=== PATIENT | female | born 1970 | race Hispanic/Latino ===

== ENCOUNTER 2017-08-18 17:08 | Emergency (ER) | payer OTHER ==
[2017-08-18 17:08] VITALS: BMI 29.9
[2017-08-18 17:23] VITALS: BP 129/78; PULSE 71; RESP 18; TEMP 97; O2SAT 98
--- NOTE | 2017-08-18 18:18 | ED PDOC ---
HPI: Abdomen Time Seen by Provider: 08/18/17 17:46 Chief Complaint (Nursing): Abdominal Pain History Per: Patient Additional Complaint(s): 47 yo female, PMH of graves Dz, presents to ED c/o right abdominal pain radiating to the back x3 week. Pt states she has not moved bowels x3 weeks now. Pt tried, mag citrate, Doculax, and fleet without success. No fever or chills, or nausea or vomiting Past Medical History Reviewed: Historical Data, Nursing Documentation, Vital Signs Vital Signs: Last Vital Signs Temp 97 F L 08/18/17 17:19 Pulse 71 08/18/17 17:19 Resp 18 08/18/17 17:19 BP 129/78 08/18/17 17:19 Pulse Ox 98 08/18/17 18:18 - Medical History PMH: Graves' Disease, Hyperthyroidism - Family History Family History: States: No Known Family Hx - Living Arrangements Living Arrangements: With Family - Social History Current smoker - smoking cessation education provided: No Alcohol: None Drugs: Denies - Home Medications Home Medications: Ambulatory Orders Medication Instructions Recorded Levothyroxine [Synthroid] 75 mcg PO DAILY 11/28/16 - Allergies Allergies/Adverse Reactions: Allergies Allergy/AdvReac Type Severity Reaction Status Date / Time No Known Allergies Allergy Verified 10/15/14 12:51 Review of Systems ROS Statement: Except As Marked, All Systems Reviewed And Found Negative Gastrointestinal: Positive for: Abdominal Pain, Constipation Physical Exam - Reviewed Nursing Documentation Reviewed: Yes Vital Signs Reviewed: Yes - Physical Exam Appears: Positive for: Well, Non-toxic, No Acute Distress Head Exam: Positive for: ATRAUMATIC, NORMAL INSPECTION, NORMOCEPHALIC Skin: Positive for: Normal Color, Warm, DRY Eye Exam: Positive for: EOMI, Normal appearance, PERRL ENT: Positive for: Normal ENT Inspection Neck: Positive for: Normal, Painless ROM Cardiovascular/Chest: Positive for: Regular Rate, Rhythm Respiratory: Positive for: CNT, Normal Breath Sounds Gastrointestinal/Abdominal: Positive for: Bowel Sounds, Soft, Tenderness (mild suprapubic), Distended. Negative for: Guarding, Rebound, Hernia, Asicites Back: Positive for: Normal Inspection Extremity: Positive for: Normal ROM Neurologic/Psych: Positive for: Alert, Oriented - Laboratory Results Result Diagrams: 08/18/17 18:28 08/18/17 18:28 - ECG O2 Sat by Pulse Oximetry: 98 Medical Decision Making Medical Decision Making: IV access established and diagnostics ordered CBC and COMP resulted WNL UA (+) UTI, 26 WBC Abdomen XR: (+) non obstructive gas patten, minimal stool noted on exam Due to Pt's physical presentation and history, CT scan ordered Pt given Po contrast, CT ordered Case endorsed to CYNDIE Seay at 1999 pending diagnostic review and re-eval Disposition - Clinical Impression Clinical Impression: Abdominal discomfort - Patient ED Disposition Is Patient to be Admitted: Transfer of Care - Disposition Disposition: Transfer of Care Disposition Time: 19:43 Condition: STABLE Forms: [facility] (Italian) - POA Present On Arrival: None
[2017-08-18 18:31] LABS: BASO # 0.1 K/uL (0.0-0.2); BASO % 0.7 % (0.0-2.0); EOS # 0.1 K/uL (0.0-0.7); EOS % 1.8 % (0.0-4.0); HEMOGLOBIN 12.3 g/dL (12.0-16.0); LYMPH # 1.7 K/uL (1.0-4.3); LYMPH % 23.9 % (20.0-40.0); MEAN CORPUSCULAR HEMOGLOBIN 27.9 pg (27.0-31.0); MEAN CORPUSCULAR HGB CONC 32.8 g/dL (33.0-37.0); MEAN PLATELET VOLUME 8.6 fl (7.2-11.7); MONO # 0.6 K/uL (0.0-0.8); MONO % 7.8 % (0.0-10.0); NEUT # 4.6 K/uL (1.8-7.0); NEUT % 65.8 % (50.0-75.0); NRBC % 0.1 % (0.0-0.0); RBC 4.42 Mil/uL (3.80-5.20); RED CELL DISTRIBUTION WIDTH 13.4 % (11.5-14.5); WHITE BLOOD COUNT 7.1 K/uL (4.8-10.8)
[2017-08-18 18:48] LABS: ALB/GLOB RATIO 1.3 (1.0-2.1); ALBUMIN 4.5 g/dL (3.5-5.0); ALT/SGPT 35 U/L (9-52); AMYLASE 83 U/L (30-110); AST/SGOT 26 U/L (14-36); BLOOD UREA NITROGEN 16 mg/dl (7-17); CALCIUM 10.2 mg/dL (8.4-10.2); GFR AFRICAN-AMERICAN > 60; GFR NON-AFRICAN AMERICAN > 60; LIPASE 102 U/L (23-300)
[2017-08-18] MEDS ORDERED: Iohexol 240 (50 ml) PO ONE (19:01)
[2017-08-18 19:23] LABS: SQUAMOUS EPITHIAL 2 /hpf (0-5); URINE BACTERIA MOD (<OCC); URINE BILIRUBIN NEGATIVE (NEGATIVE); URINE BLOOD MODERATE (NEGATIVE); URINE CLARITY CLOUDY (Clear); URINE COLOR YELLOW (YELLOW); URINE GLUCOSE (UA) NEG (Normal); URINE LEUKOCYTE ESTERASE SMALL Leu/uL (Negative); URINE NITRATE NEGATIVE (NEGATIVE); URINE PROTEIN NEGATIVE (NEGATIVE); URINE UROBILINOGEN 0.2-1.0 mg/dL (0.2-1.0)
[2017-08-18] MEDS ORDERED: Iohexol 240 (50 ml) ONE (19:56)
[2017-08-18] MEDS ORDERED: Sodium Chloride 0.9% 50 ML IV ONE (20:32)
[2017-08-18] MEDS ORDERED: Iohexol 300 100 ML IJ ONE (20:32)
--- NOTE | 2017-08-18 20:46 | ED PDOC ---
- Laboratory Results Result Diagrams: 08/18/17 18:28 08/18/17 18:28 - ECG O2 Sat by Pulse Oximetry: 98 Pulse Ox Interpretation: Normal - Other Rad CT abd and pelvis with oral and IV contrast X-Ray: Read By Radiologist X-Ray Interpretation: see below Medical Decision Making Medical Decision Making: Case was signed out to keno writer from ARETHA Harris pending CT abd and pelvis. Patient tolerated oral contrast. CT scheduled at 10:[address]: FINDINGS: Lower thorax: Calcified granuloma in the medial right middle lobe. ABDOMEN: Liver: Unremarkable. No mass. Gallbladder and bile ducts: Unremarkable. No calcified stones. No ductal dilation. Pancreas: Unremarkable. No mass. No ductal dilation. Spleen: Unremarkable. No splenomegaly. Adrenals: Unremarkable. No mass. Kidneys and ureters: Parenchymal loss in the upper right kidney with slight generalized atrophy. No hydronephrosis. Stomach and bowel: Unremarkable. No obstruction. No mucosal thickening. Appendix: A normal appendix is seen. If there is a discrepancy between the preliminary and final interpretation. PELVIS: Bladder: Unremarkable. No mass. Reproductive: Unremarkable as visualized. ABDOMEN and PELVIS: Intraperitoneal space: Unremarkable. No free air. No significant fluid collection. Bones/joints: Prominent cystic changes in the femoral head/neck junctions, left greater than right. No acute fracture. No dislocation. Soft tissues: Residua of low transverse pelvic incision. Vasculature: There is mild calcification of the abdominal aorta with extension into the iliac arteries. No abdominal aortic aneurysm. Lymph nodes: Unremarkable. No enlarged lymph nodes. IMPRESSION: 1. Little change since 11/28/2016. No acute interval process is identified and no obstruction. 2. Cystic changes of the femoral heads and neck, left greater than right which are similar. Patient is aware of all diagnostic testing results, all questions answered. Patient given dietary instructions for relief of constipation and was referred to deaf teacher document control coordinator. Disposition - Clinical Impression Clinical Impression: Abdominal discomfort, Constipation - POA Present On Arrival: None - Disposition Referrals: Karlos Garvin MD [Staff Provider] - Disposition: Routine/Home Disposition Time: 23:40 Condition: STABLE Additional Instructions: MiraLAX daily to relieve constipation, available [id number]. Increase fiber in diet. Follow up soon as possible with deaf teacher. Instructions: Constipation (ED), High Fiber Diet (ED) Forms: [employer] (Portuguese)
--- NOTE | 2017-08-19 10:30 | RAD ---
HISTORY: constipation COMPARISON: No prior. FINDINGS: BOWEL: Normal. No obstruction. No free air. Moderate amount of stool seen within the cecum and at ascending as well as proximal transverse colon consistent with constipation. BONES: Normal. OTHER FINDINGS: Calcified pelvic phleboliths seen overlying the left inferior true pelvis IMPRESSION: Findings consistent with this patient's history of constipation as above
--- NOTE | 2017-08-19 14:51 | CT ---
PROCEDURE: CT scan abdomen pelvis dated 08/18/2017. HISTORY: Abdominal pain and constipation x3 weeks. Rule out obstruction. COMPARISON: Comparison made with prior CT scan of the abdomen pelvis 12/08/2016 TECHNIQUE: Contiguous axial images of the abdomen and pelvis performed following oral and intravenous injection of approximately 95 cc Omnipaque 300 contrast material. Additional 2 dimensional sagittal and coronal reformats generated. Radiation dose: Total exam DLP = 986.27 mGy-cm. This CT exam was performed using one or more of the following dose reduction techniques: Automated exposure control, adjustment of the mA and/or kV according to patient size, and/or use of iterative reconstruction technique. FINDINGS: LOWER THORAX: Re- demonstrated is are 2 tiny calcifications 1 in the middle lobe and 1 in the right anterior lower lobe unchanged. There may be some minimal postinflammatory scarring/ atelectasis in the left lingular region. . There may be some minimal chronic postinflammatory. No effusion or basilar pneumothorax. Very tiny hiatal hernia. LIVER: The liver exhibits normal size measuring approximately 14.6 cm in CC dimension. Mild diffuse fatty hepatic infiltration. Portal and splenic veins are opacified. GALLBLADDER AND BILE DUCTS: Gallbladder is physiologically distended. No evidence of intraluminal gallbladder calculi. PANCREAS: Re- demonstrated are 2 tiny foci low-attenuation posterior margin proximal pancreatic body (axial image number [id number]) and additional tiny focus within the posterior margin of the pancreas is at the level of the mid to distal body (axial image number 48) that are of uncertain etiology too small to characterize. Foci could represent invaginated fat or small cysts however IPMNs of the pancreas not excluded. Followup interval recommended. SPLEEN: Spleen exhibits normal size and attenuation pattern without masses collections or calcifications. ADRENALS: No adrenal lesions. KIDNEYS AND URETERS: Kidneys demonstrate symmetric nephrograms. No evidence of nephrolithiasis or hydronephrosis. BLADDER: The urinary bladder is appears incompletely distended which may account for slight thick-walled appearance. . No evidence of intraluminal urinary bladder calculi. REPRODUCTIVE: Probable tiny left adnexal cyst. APPENDIX: Normal-appearing appendix BOWEL: Evaluation of the bowel is limited due to incomplete opacification. Stomach is non opacified and underdistended the latter of which presumably accounts for thick-walled appearance. Gastritis not excluded. Visualized loops of small bowel exhibit normal contour and caliber. No evidence of acute mechanical small bowel obstruction. Oral contrast material has extended into the colon to the level of the proximal/mid sigmoid region. . PERITONEUM: Unremarkable. No fluid collection. No free air. LYMPH NODES: Unremarkable. No enlarged lymph nodes. VASCULATURE: Unremarkable. No aortic aneurysm. BONES: Minor multilevel degenerative spondylosis of the lower thoracic and lumbar spine. Re- demonstrated are cystic changes both femoral heads OTHER FINDINGS: None. IMPRESSION: Re- demonstrated are small calcified granulomata right lower lung field consistent with prior exposure to granulomatous disease process as described. Mild fatty hepatic infiltration. The the These findings were discussed with the emergency room ARETHA Estes at approximately 2:45 p.m. with written down and read back verification.
== END 2017-08-19 00:06 | disposition home or self-care (01) ==
LOC: H.ER 17:08
DX: K59.00 Constipation, unspecified (principal); N39.0 Urinary tract infection, site not specified; E05.00 Thyrotoxicosis with diffuse goiter without thyrotoxic crisis or storm
CPT/HCPCS: 74018; 74177; 80053; 81003; 81025; 82150; 83690; 84484; 85025; 99283; Q9966; Q9967

== ENCOUNTER 2017-11-02 13:32 | Emergency (ER) | payer OTHER ==
[2017-11-02 13:37] VITALS: BMI 29.8
[2017-11-02 13:38] VITALS: TEMP 97.8; O2SAT 100
[2017-11-02] MEDS ORDERED: Lidocaine 5% Patch TD STA (14:23)
[2017-11-02] MEDS ORDERED: Lidocaine 5% Patch TD ONE (14:55)
--- NOTE | 2017-11-02 15:45 | ED PDOC ---
HPI: Back Time Seen by Provider: 11/02/17 13:51 Chief Complaint (Nursing): Back Pain Chief Complaint (Provider): Back Pain History Per: Patient History/Exam Limitations: no limitations Onset/Duration Of Symptoms: Days (x5), Worse Since (onset) Current Symptoms Are (Timing): Still Present Quality Of Discomfort: "Pain" Associated Symptoms: New Numbness Exacerbating Factor(s): Movement Additional Complaint(s): Juanita Woodall is a 47 year old female, with a past medical history of Grave's disease, who presents to the emergency department complaining of a progressively worst lower back pain onset for x5 days. Patient reports pain initially began when she was taking a shower, she bend forward to clean left leg and when she stood up she felt pain in the lower back. The following day when she woke up the pain became worst. She went to Dr. Taylor's office and prescribed Tramadol, Ibuprofen and Robaxin. Patient states symptoms have not been alleviated with pain medications and now feels a numbness sensation going down both buttocks. Pain is still worst with movement. She denies any blunt trauma, dysuria, hematuria, incontinence, abdominal pain, nausea, vomit, and diarrhea. No further medical complaints. PMD: Steve Taylor Past Medical History Reviewed: Historical Data, Nursing Documentation, Vital Signs Vital Signs: Last Vital Signs Temp 97.8 F 11/02/17 13:37 Pulse 54 L 11/02/17 13:37 Resp 16 11/02/17 13:37 BP 135/83 11/02/17 13:37 Pulse Ox 100 11/02/17 13:37 - Medical History PMH: Graves' Disease, Hyperthyroidism - Surgical History Surgical History: No Surg Hx - Family History Family History: States: No Known Family Hx - Home Medications Home Medications: Ambulatory Orders Medication Instructions Recorded Levothyroxine [Synthroid] 75 mcg PO DAILY 11/28/16 Nitrofurantoin Macrocrystals 100 mg PO BID #14 cap 08/19/17 [Macrobid] Cyclobenzaprine [Cyclobenzaprine 10 mg PO Q8 PRN #20 tab 11/02/17 HCl] Meloxicam [Mobic] 7.5 mg PO DAILY PRN #20 tab 11/02/17 - Allergies Allergies/Adverse Reactions: Allergies Allergy/AdvReac Type Severity Reaction Status Date / Time No Known Allergies Allergy Verified 10/15/14 12:51 Review of Systems ROS Statement: Except As Marked, All Systems Reviewed And Found Negative Gastrointestinal: Negative for: Nausea, Vomiting, Abdominal Pain, Diarrhea Genitourinary Female: Negative for: Dysuria, Incontinence, Hematuria Musculoskeletal: Positive for: Back Pain (lower that radiates to both buttocks) Neurological: Positive for: Numbness Physical Exam - Reviewed Nursing Documentation Reviewed: Yes Vital Signs Reviewed: Yes - Physical Exam Appears: Positive for: In Acute Distress (mild painful) Head Exam: Positive for: ATRAUMATIC, NORMAL INSPECTION, NORMOCEPHALIC Skin: Positive for: Normal Color, Warm, Dry Neck: Positive for: Painless ROM Cardiovascular/Chest: Positive for: Regular Rate, Rhythm. Negative for: Murmur Respiratory: Positive for: Normal Breath Sounds. Negative for: Respiratory Distress Pulses-Dorsalis Pedis (L): 2+ Pulses-Dorsalis Pedis (R): 2+ (5/5 strength b/l in lower extremities) Gastrointestinal/Abdominal: Positive for: Normal Exam, Soft. Negative for: Tenderness Back: Positive for: Normal Inspection, Vertebral Tenderness (minimal lumbar vertebral tenderness), Other (b/l paralumbar tenderness. Straight leg raise test in right positive at 30. ). Negative for: L CVA Tenderness, R CVA Tenderness Extremity: Positive for: Normal ROM (lower extremities), Other. Negative for: Deformity, Swelling Neurologic/Psych: Positive for: Alert, Oriented. Negative for: Motor/Sensory Deficits - ECG O2 Sat by Pulse Oximetry: 100 (RA) Pulse Ox Interpretation: Normal - Progress ED Course And Treament: CT LS spine w/o contrast: Disc bulge L3-4 through L5-S1. No focal disc herniation. Mild spinal stenosis at L4-5. No foraminal stenosis. On re-evaluation, pt. reports some pain relief. Gait steady unassisted. Offered more pain meds but refused. States she will f/u with PMD. Medical Decision Making Medical Decision Making: Initial Impression: Back pain Initial Plan: --Lumbar Spine w/o contrast [CT] --Lidoderm 1 ea TD --Toradol 30 mg IM --Valium 10 mg PO --Urinalysis --Reevaluation 16:[address] FINDINGS: VERTEBRAE: Unremarkable. No fracture. Normal alignmentVertebral bodies maintained in height. Transverse processes and posterior elements are intact. Normal alignment is maintained. . DISCS/SPINAL CANAL/NEURAL FORAMINA: L1-2: Unremarkable. L2-3: Unremarkable. L3-4: Mild disc bulge. No herniation. No spinal or foraminal stenosis. L4-5: Mild disc bulge, asymmetric towards the left. No focal herniation. Mild central spinal stenosis. No foraminal stenosis. L5-S1: Mild diffuse disc bulge. No focal herniation. No spinal or foraminal stenosis. PARASPINAL SOFT TISSUES: Unremarkable. OTHER FINDINGS: None. IMPRESSION: Disc bulge L3-4 through L5-S1. No focal disc herniation. Mild spinal stenosis at L4-5. No foraminal stenosis. Otherwise unremarkable examination. ~ Scribe Attestation: Documented by Levy Callaway, acting as a scribe for Patrice Estes PA-C. Provider Scribe Attestation: All medical record entries made by the Scribe were at my direction and personally dictated by me. I have reviewed the chart and agree that the record accurately reflects my personal performance of the history, physical exam, medical decision making, and the department course for this patient. I have also personally directed, reviewed, and agree with the discharge instructions and disposition. Disposition - Clinical Impression Clinical Impression: Bulging lumbar disc - Patient ED Disposition Is Patient to be Admitted: No - Disposition Referrals: [facility] [Outside] Disposition: Routine/Home Disposition Time: 18:11 Condition: STABLE Additional Instructions: Follow up with PMD for further evaluation. Return to ED immediately if symptoms worsen. Prescriptions: Cyclobenzaprine [Cyclobenzaprine HCl] 10 mg PO Q8 PRN #20 tab PRN Reason: Muscle Spasm Meloxicam [Mobic] 7.5 mg PO DAILY PRN #20 tab PRN Reason: Pain, Mild (1-3) Instructions: Back Exercises Forms: [employer] (Lithuanian) Print Language: SETSWANA
--- NOTE | 2017-11-02 16:23 | CT ---
PROCEDURE: CT Lumbar Spine without contrast HISTORY: pain COMPARISON: None. TECHNIQUE: Axial computed tomography images were obtained of the lumbar spine without the use of intravenous contrast. Coronal and sagittal reformatted images were created and reviewed. Radiation dose: Total exam DLP = 890.23 mGy-cm. This CT exam was performed using one or more of the following dose reduction techniques: Automated exposure control, adjustment of the mA and/or kV according to patient size, and/or use of iterative reconstruction technique. FINDINGS: VERTEBRAE: Unremarkable. No fracture. Normal alignmentVertebral bodies maintained in height. Transverse processes and posterior elements are intact. Normal alignment is maintained. . DISCS/SPINAL CANAL/NEURAL FORAMINA: L1-2: Unremarkable. L2-3: Unremarkable. L3-4: Mild disc bulge. No herniation. No spinal or foraminal stenosis. L4-5: Mild disc bulge, asymmetric towards the left. No focal herniation. Mild central spinal stenosis. No foraminal stenosis. L5-S1: Mild diffuse disc bulge. No focal herniation. No spinal or foraminal stenosis. PARASPINAL SOFT TISSUES: Unremarkable. OTHER FINDINGS: None. IMPRESSION: Disc bulge L3-4 through L5-S1. No focal disc herniation. Mild spinal stenosis at L4-5. No foraminal stenosis. Otherwise unremarkable examination.
[2017-11-02 18:30] VITALS: BP 132/80; PULSE 62; RESP 18
== END 2017-11-02 18:24 | disposition home or self-care (01) ==
LOC: SUPCPDRO 13:32 → H.ER 13:32
DX: M51.26 Other intervertebral disc displacement, lumbar region (principal); E05.00 Thyrotoxicosis with diffuse goiter without thyrotoxic crisis or storm; M48.061 Spinal stenosis, lumbar region without neurogenic claudication
CPT/HCPCS: 72131; 96372; 99283; J1885

== ENCOUNTER 2017-12-14 12:13 | Emergency (ER) | payer OTHER ==
[2017-12-14 12:19] VITALS: O2SAT 99; BMI 29.7
--- NOTE | 2017-12-14 13:30 | ED PDOC ---
HPI: General Adult Time Seen by Provider: 12/14/17 12:37 Chief Complaint (Nursing): Headache Chief Complaint (Provider): Left-sided facial pain History Per: Patient History/Exam Limitations: no limitations Current Symptoms Are (Timing): Still Present Additional Complaint(s): 47 year old female with a past medical history of graves disease who presents to the emergency department with a complaint of a left-sided facial pain emanating from base of skull behind the ear. 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 Patient does note discomfort when she chews but patient wears dentures and denies dental pain. Denies changes in hearing, fever, neck pain or swelling , and trauma. Past Medical History Reviewed: Historical Data, Nursing Documentation, Vital Signs Vital Signs: Last Vital Signs Temp 98.2 F 12/14/17 12:17 Pulse 70 12/14/17 12:17 Resp 18 12/14/17 12:17 BP 123/72 12/14/17 12:17 Pulse Ox 99 12/14/17 14:50 - Medical History PMH: Graves' Disease, Hyperthyroidism - Family History Family History: States: Unknown Family Hx - Social History Current smoker - smoking cessation education provided: No Alcohol: None Drugs: Denies - Home Medications Home Medications: Ambulatory Orders Medication Instructions Recorded Levothyroxine [Synthroid] 75 mcg PO DAILY 11/28/16 Nitrofurantoin Macrocrystals 100 mg PO BID #14 cap 08/19/17 [Macrobid] Cyclobenzaprine [Cyclobenzaprine 10 mg PO Q8 PRN #20 tab 11/02/17 HCl] Meloxicam [Mobic] 7.5 mg PO DAILY PRN #20 tab 11/02/17 Naproxen [Naprosyn] 500 mg PO BID PRN #14 tablet 12/14/17 - Allergies Allergies/Adverse Reactions: Allergies Allergy/AdvReac Type Severity Reaction Status Date / Time No Known Allergies Allergy Verified 10/15/14 12:51 Review of Systems ROS Statement: Except As Marked, All Systems Reviewed And Found Negative (As per HPI, otherwise negative.) Constitutional: Negative for: Fever, Other (trauma) ENT: Negative for: Other (Changes in hearing) Musculoskeletal: Positive for: Other (Left-sided facial pain). Negative for: Neck Pain (or swelling) Physical Exam - Reviewed Nursing Documentation Reviewed: Yes Vital Signs Reviewed: Yes - Physical Exam Appears: Positive for: Well, No Acute Distress Head Exam: Positive for: ATRAUMATIC, NORMAL INSPECTION, NORMOCEPHALIC ENT: Positive for: TM Is/Are (TM normal bilaterally. No vesicle on the left auditory canal. ) Neck: Positive for: Normal, Supple. Negative for: Pain On Movement Of Neck Cardiovascular/Chest: Positive for: Regular Rate, Rhythm. Negative for: Murmur Respiratory: Positive for: Normal Breath Sounds. Negative for: Accessory Muscle Use, Wheezing, Respiratory Distress Lymphatic: Positive for: Normal Exam. Negative for: Adenopathy Neurologic/Psych: Positive for: Alert, Oriented (x3). Negative for: Facial Droop - ECG O2 Sat by Pulse Oximetry: 99 (RA) Pulse Ox Interpretation: Normal Medical Decision Making Medical Decision Making: Time: 1300 Initial impression: Left-sided facial pain Initial plan: Toradol [address] Reevaluation --Prescription monitoring program (PNP) database inquired revealed in monthly Xanax prescription with Percocet and Tramadol prescription for this spring. Time: [address] FINDINGS: HEMORRHAGE: No intracranial hemorrhage. BRAIN: Maier-white matter differentiation is preserved. There is no mass, mass effect or abnormal extra-axial fluid collection. VENTRICLES: The ventricles are normal in size, shape and configuration. CALVARIUM: There is no calvarial fracture or extracranial soft tissue swelling. There is an old right orbital floor fracture deformity. PARANASAL SINUSES: Predominantly clear. MASTOID AIR CELLS: Predominantly clear. OTHER FINDINGS: None. IMPRESSION: No acute intracranial abnormality. ---- d/w Dr Herbert, will Rx pain meds and see in office for outpatient eval of possible trigeminal neuralgia. RE-EVAL 340p improved, face is symmetric without acute gross neurologic abnormality. gait normal. results and recommendations discussed. Scribe Attestation: Documented by Tarah Lozano, acting as a scribe for Jorge Bundy DO. Provider Scribe Attestation: All medical record entries made by the Scribe were at my direction and personally dictated by me. I have reviewed the chart and agree that the record accurately reflects my personal performance of the history, physical exam, medical decision making, and the department course for this patient. I have also personally directed, reviewed, and agree with the discharge instructions and disposition. Disposition - Clinical Impression Clinical Impression: Facial pain syndrome - Patient ED Disposition Is Patient to be Admitted: No Counseled Patient/Family Regarding: Studies Performed, Diagnosis, Need For Followup, Rx Given - Disposition Referrals: Sharad Herbert MD [Staff Provider] - Disposition: Routine/Home Disposition Time: 15:10 Condition: STABLE Additional Instructions: Followup with Dr Herbert for further testing. Return to ER for any worse pain, swelling, fever, or any concern. CT brain performed today. Prescriptions: Naproxen [Naprosyn] 500 mg PO BID PRN #14 tablet PRN Reason: Pain, Moderate (4-7) Instructions: Trigeminal Neuralgia Forms: [facility] (Ivorian)
--- NOTE | 2017-12-14 14:34 | CT ---
PROCEDURE: CT HEAD WITHOUT CONTRAST. HISTORY: L facial pain and headache COMPARISON: None available. TECHNIQUE: Axial computed tomography images were obtained through the head/brain without intravenous contrast. Radiation dose: Total exam DLP = 893.34 mGy-cm. This CT exam was performed using one or more of the following dose reduction techniques: Automated exposure control, adjustment of the mA and/or kV according to patient size, and/or use of iterative reconstruction technique. FINDINGS: HEMORRHAGE: No intracranial hemorrhage. BRAIN: Maier-white matter differentiation is preserved. There is no mass, mass effect or abnormal extra-axial fluid collection. VENTRICLES: The ventricles are normal in size, shape and configuration. CALVARIUM: There is no calvarial fracture or extracranial soft tissue swelling. There is an old right orbital floor fracture deformity. PARANASAL SINUSES: Predominantly clear. MASTOID AIR CELLS: Predominantly clear. OTHER FINDINGS: None. IMPRESSION: No acute intracranial abnormality.
[2017-12-14 16:09] VITALS: BP 124/79; PULSE 81; RESP 14; TEMP 97.9
== END 2017-12-14 16:08 | disposition home or self-care (01) ==
LOC: H.ER 12:13
DX: G50.1 Atypical facial pain (principal); E05.00 Thyrotoxicosis with diffuse goiter without thyrotoxic crisis or storm
CPT/HCPCS: 70450; 96372; 99285; J1885